=== PATIENT | female | born 1985 | race Caucasian/White ===

== ENCOUNTER 2022-02-17 16:33 | Outpatient (CLI) | payer SELFPAY ==
[2022-02-17 17:07] VITALS: BP 115/72
--- NOTE | 2022-02-17 18:40 | Ultrasound Report ---
ULTRASOUND OBSTETRIC LIMITED ULTRASOUND BIOPHYSICAL PROFILE INDICATION / CLINICAL INFORMATION: bpp. COMPARISON: None available. FINDINGS: BREATHING MOVEMENT = 2 GROSS BODY MOVEMENT = 2 TONE = 2 QUALITATIVE AMNIOTIC FLUID VOLUME = 2 TOTAL BIOPHYSICAL SCORE = 8/8 AMNIOTIC FLUID INDEX (cm) = 17.4 PRESENTATION: Cephalic. HEART RATE (beats per minute): 147 ADDITIONAL FINDINGS: None. IMPRESSION: 1. Biophysical Score = 8/8 Signer Name: Meek Chauhan MD Signed: 02/17/2022 6:36 PM Workstation Name: [id number]
== END 2022-02-17 19:25 | disposition home or self-care (01) ==
LOC: TRG 16:33 → APU 16:35 → TRG 20:44
PROVIDERS: ATTEND Obstetrics & Gynecology
DX: O09.893 Supervision of other high risk pregnancies, third trimester (principal); Z3A.40 40 weeks gestation of pregnancy
CPT/HCPCS: 76815; 76819

== ENCOUNTER 2022-02-20 15:52 | Inpatient (IN) | payer SELFPAY ==
[2022-02-20] MEDS ORDERED: LACTATED RINGERS 1,000 ML ONE (16:54)
--- NOTE | 2022-02-20 17:49 | History and Physical Report ---
History of Present Illness Date of examination: 02/20/22 Date of admission: 02/20/2022 Chief complaint: Presents for scheduled postdates induction History of present illness: Late Entry to Care at [facility]; course complicated by palpations. Past History Past Medical History: no pertinent history Past Surgical History: no surgical history Family/Genetic History: hypertension Social history: no significant social history - Obstetrical History Expected Date of Delivery: 02/17/22 Actual Gestation: 40 Week(s) 3 Day(s) : 1 Medications and Allergies Allergies Allergy/AdvReac Type Severity Reaction Status Date / Time No Known Allergies Allergy Unverified 02/17/22 17:12 Review of Systems All systems: negative - Vital Signs Vital signs: Vital Signs Pulse Pulse Ox 45 L 88 02/20/22 16:26 02/20/22 16:26 Temp Pulse Resp BP Pulse Ox 98.7 F 70 16 135/70 100 02/20/22 16:37 02/20/22 17:41 02/20/22 16:37 02/20/22 16:37 02/20/22 17:41 - Physical Exam Lungs: Positive: Clear to auscultation, Normal air movement Abdomen: Positive: soft, normal bowel sounds Genitourinary (Female): Positive: normal external genitalia, normal perenium Vagina: Positive: normal moisture Uterus: Positive: enlarged - Obstetrical FHR: category 1 Uterine Contraction Monitor Mode: External Cervical Dilatation: 3 Cervical Effacement Percentage: 30 station: -3 Uterine Contraction Pattern: Regular Uterine Tone Measurement Phase: Resting Uterine Contraction Intensity: Moderate Results All other labs normal. Assessment and Plan A: IUP @ 40 3/7 Weeks Category I Tracing AMA GBS Positive P: Admit to L&D per Routine Orders GBS Prophylaxis Pitocin Augmentation
[2022-02-20] MEDS ORDERED: TERBUTALINE 1 MG/1 ML INJ SUB-Q PRN (17:52)
[2022-02-20] MEDS ORDERED: NALOXONE 0.4 MG/1 ML INJ IV PRN (17:52)
[2022-02-20] MEDS ORDERED: ONDANSETRON 4 MG/2 ML INJ IV PRN (17:52)
[2022-02-20] MEDS ORDERED: miSOPROStol 200 MCG TAB PR PRN (17:52)
[2022-02-20] MEDS ORDERED: CARBOPROST TROMETHAMINE 250 MCG/1 ML INJ IM PRN (17:52)
[2022-02-20] MEDS ORDERED: OXYTOCIN 10 UNIT/1 ML INJ IM PRN (17:52)
[2022-02-20] MEDS ORDERED: LOPERAMIDE 2 MG CAP PO PRN (17:52)
[2022-02-20] MEDS ORDERED: ePHEDrine SULFATE 50 MG/1 ML INJ IV PRN (17:52)
[2022-02-20] MEDS ORDERED: METHYLERGONOVINE MALEATE 0.2 MG/ML VIAL IM PRN (17:52)
[2022-02-20] MEDS ORDERED: LIDOCAINE (2%) 20 MG/1 ML VIAL 20 ML MDV INFILTRATI ONE (17:52)
[2022-02-20] MEDS ORDERED: BUTORPHANOL 2 MG/1 ML INJ IV PRN (17:52)
[2022-02-20] MEDS ORDERED: MINERAL OIL 30 ML ORAL LIQD PO PRN (17:52)
[2022-02-20] MEDS ORDERED: OXYTOCIN DRIP 30 UNITS/500 ML BAG IV SCH ×2 (18:00)
[2022-02-20] MEDS ORDERED: AMPICILLIN/NS 2 GM/100 ML 2 GM/100 ML BAG IV ONE (19:00)
[2022-02-20] MEDS: LACTATED RINGERS 1,000 ML IV SCH (19:47)
[2022-02-20 20:23] LABS: Hematocrit 38.2 % (30.3-42.9); Hemoglobin 12.1 gm/dl (10.1-14.3); Mean Corpuscular HGB Conc 32 % (30-34); Mean Corpuscular Volume 92 fl (79-97); Red Blood Count 4.18 M/mm3 (3.65-5.03)
[2022-02-20 20:31] LABS: Platelet Count 150 K/mm3 (140-440)
--- NOTE | 2022-02-20 23:53 | Ultrasound Report ---
US OB follow up INDICATION / CLINICAL INFORMATION: Post-due date COMPARISON: biophysical profile Limited OB ultrasound 02/17/2022 TECHNIQUE: Using a transcutaneous probe, multiple grayscale, color Doppler, and spectral Doppler imag es of the uterus and fetus were captured and stored. FINDINGS: Single cephalic fetus heart rate 146 bpm. Amniotic fluid index upper limits of normal with NIKI of 21 cm. Grade 2 posterior fundal placenta. Measurements as documented on study result in an estimated composite gestational age of 39 weeks 4 da ys, EDC 02/23/2022. Clinical estimate of gestational age is 40 weeks 3 days. Estimated weight is 3822 g; 61% growth percentile. IMPRESSION: 1. Single living fetus as detailed. Signer Name: Britton Pak II, MD Signed: 02/20/2022 11:49 PM Workstation Name: [id number]
[2022-02-21] MEDS ORDERED: SODIUM CHLORIDE 0.9% IRR 1,500 ML BOTTLE IR ONE (00:19)
[2022-02-21] MEDS ORDERED: WATER FOR IRRIG STERILE 1,500 ML BOTTLE IR ONE (00:19)
[2022-02-21] MEDS: miSOPROStol 25 MCG TAB PO SCH ×2 (00:26→04:10)
[2022-02-21] MEDS: AMPICILLIN/NS 1 GM/50 ML 1 GM/50 ML BAG IV SCH ×3 (00:28→08:28)
[2022-02-21] MEDS ORDERED: BUTORPHANOL 2 MG/1 ML INJ IV PRN (01:15)
[2022-02-21] MEDS ORDERED: ACETAMINOPHEN 500 MG TAB PO PRN (01:15)
[2022-02-21] MEDS ORDERED: fentaNYL 100 MCG/2 ML INJ IV PRN (01:15)
--- NOTE | 2022-02-21 11:36 | Event Note ---
Date: 02/21/22 Pt evaluated. Pt has received carr balloon and cytotec for induction. moderate amount of blood noted, u/s with fundal placenta therefore pelvic done and cervix 7/80/-1 with bulging bag to +1 station, AROM done gently and head engaged with polyhydramnios noted and same with light meconium stain and small gaston of blood, will augment labor with pitocin in 2hrs if cervix unchanged. Nurse notified. Will also give PCN 3mu every 4hrs being GBS positive and has received 2doses of Ampicillin already per nurse report. pt states she had care in [place] prior to 27wks when [facility]. EFW estimated to be 3800g. Hopeful for vaginal delivery
[2022-02-21] MEDS: PENICILLIN G POTASSIUM 3 MIL.UNITS in SODIUM CHLORIDE 0.9% 50 ML IV SCH ×2 (12:56→16:39)
[2022-02-21] MEDS ORDERED: NalbUPHINE 10 MG/1 ML INJ IV PRN (14:00)
[2022-02-21] MEDS ORDERED: OXYTOCIN DRIP 30 UNITS/500 ML BAG IV SCH (15:00)
--- NOTE | 2022-02-21 17:05 | Event Note ---
Date: 02/21/22 pt evaluated and pelvic unchanged at 7/100/-1; IUPC and FSE placed to measure adequacy of contractions and close monitoring. FHR category I and pitocin 2mu/min. Pt educated about epidural because she is tearful with contractions now after received IV nubain pain med. Hopeful for vaginal delivery. Pt declines epidural at this time.
[2022-02-21] MEDS ORDERED: ePHEDrine SULFATE 50 MG/1 ML INJ ONE (17:11)
[2022-02-21] MEDS ORDERED: ePHEDrine SULFATE 50 MG/1 ML INJ IV PRN (17:26)
[2022-02-21] MEDS ORDERED: NALOXONE 0.4 MG/1 ML INJ IV PRN (17:26)
[2022-02-21] MEDS ORDERED: fentaNYL-BUPIV 2 MCG/ML-0.125% 200 MCG/100 ML BAG EPIDURAL SCH (18:00)
--- NOTE | 2022-02-21 18:12 | Anesthesia Consultation ---
Anesthesia Consult and Med Hx Date of service: 02/21/22 - Airway Anesthetic Teeth Evaluation: Poor ROM Head & Neck: Adequate Mental/Hyoid Distance: Adequate Mallampati Class: Class II Intubation Access Assessment: Probably Good - Pulmonary Exam CTA: Yes - Cardiac Exam Cardiac Exam: RRR - Pre-Operative Health Status ASA Pre-Surgery Classification: ASA2 Proposed Anesthetic Plan: Epidural - Pulmonary Hx Smoking: No Hx Asthma: No Hx Respiratory Symptoms: No COPD: No Hx Pneumonia: No - Cardiovascular System Hx Hypertension: No - Central Nervous System Hx Seizures: No Hx Psychiatric Problems: No - Endocrine Hx Renal Disease: No Hx End Stage Renal Disease: No Hx Insulin Dependent Diabetes: No Hx Non-Insulin Dependent Diabetes: No Hx Hypothyroidism: No Hx Hyperthyroidism: No - Hematic Hx Anemia: No Hx Sickle Cell Disease: No - Other Systems Hx Alcohol Use: No Hx Substance Use: No Hx Obesity: Yes
--- NOTE | 2022-02-21 18:13 | Progress Note ---
Labor Epidural - Labor Epidural Start Time: 17:42 Stop Time: 17:58 Performed by:: ALBERTO KAUFMAN Procedure: Patient is requesting epidural for labor pain. H&P and labs reviewed. Procedure explained, questions answered, consent obtained. Patient placed in sitting position with monitors applied. Timeout performed immediately before start of procedure. Prep/drape in usual sterile fashion. Skin localized 3 mL 1% lidocaine at L[3]-L[4] interspace. 17-gauge Touhy epidural needle advanced to GURVINDER with saline at [8] cm. No blood/CSF noted via epidural needle. Epidural catheter advanced to [12] cm. Negative aspiration for blood and CSF via catheter, negative response to test dose 3 ml 1.5% lidocaine w/ Epi. Sterile dressing applied followed by tape reinforcement. Patient tolerated procedure well. No immediate complications noted.
[2022-02-21] MEDS ORDERED: SODIUM CHLORIDE 0.9% 1000 ML 1,000 ML VG SCH (19:45)
[2022-02-21] MEDS: LACTATED RINGERS 1,000 ML IV SCH (19:45)
--- NOTE | 2022-02-21 19:47 | Event Note ---
Date: 02/21/22 S: Feels good O: VE /-1, variable decelerations noted, amnioinfusion started. Pit at 2 mu A: 40.4 week Induction of labor P: Amnioinfusion Continue to monitor
[2022-02-21] MEDS ORDERED: FAMOTIDINE 20 MG/2 ML INJ IV ONE (21:40)
[2022-02-21] MEDS ORDERED: AZITHROMYCIN/NS 500 MG/250 ML 500 MG/250 ML BAG IV ONE (21:40)
[2022-02-21] MEDS ORDERED: BICITRA ORAL LIQD 30ML PO ONE (21:40)
[2022-02-21] MEDS ORDERED: METOCLOPRAMIDE 10 MG/2 ML INJ IV ONE (21:40)
--- NOTE | 2022-02-21 21:46 | Event Note ---
Date: 02/21/22 S: Feeling ok O:CAT 2 tracing, variability decreasing, on exam, pitocin remains off A: NRFT and failure to descend P: Dr. Benavides notified of pt status and need for .
[2022-02-21] MEDS ORDERED: ceFAZolin/Water 2 GM/20 ML 2 GM/20 ML SYRINGE IV NR (22:00)
[2022-02-21] MEDS ORDERED: miSOPROStol 200 MCG TAB ONE (22:43)
[2022-02-21] MEDS ORDERED: LIDOCAINE 2%/EPINEPHRINE 1:200,000 VIAL (20 ML) INFILTRATI ONE (23:49)
[2022-02-22] MEDS ORDERED: SODIUM CHLORIDE 0.9% 500 ML 500 ML IV ONE ×2 (00:15→04:03)
[2022-02-22 00:27] LABS: Basophils % (Auto) 0.3 % (0.0-1.8); Hematocrit 29.2 % (30.3-42.9); Hemoglobin 9.2 gm/dl (10.1-14.3); Lymphocytes # (Auto) 0.9 K/mm3 (1.2-5.4); Lymphocytes % (Auto) 7.6 % (13.4-35.0); Mean Corpuscular HGB Conc 32 % (30-34); Mean Corpuscular Volume 91 fl (79-97); Monocytes # (Auto) 0.6 K/mm3 (0.0-0.8); Monocytes % (Auto) 5.2 % (0.0-7.3); Platelet Count 117 K/mm3 (140-440)
[2022-02-22] MEDS ORDERED: LACTATED RINGERS 1,000 ML ONE (00:29)
[2022-02-22] MEDS ORDERED: ONDANSETRON 4 MG/2 ML INJ ONE (00:29)
[2022-02-22] MEDS ORDERED: ePHEDrine SULFATE 50 MG/1 ML INJ ONE (00:41)
[2022-02-22 00:45] LABS: Alanine Aminotransferase 10 units/L (7-56); Albumin 2.7 g/dL (3.9-5); BUN/Creatinine Ratio 9; Blood Urea Nitrogen 7 mg/dL (7-17); Calcium 8.1 mg/dL (8.4-10.2); Hemolysis Index 34
[2022-02-22] MEDS ORDERED: SODIUM CHLORIDE 0.9% 500 ML 500 ML ONE ×2 (00:50→08:16)
--- NOTE | 2022-02-22 01:45 | Anesthesia Day of Surgery ---
Anesthesia Day of Surgery - Day of Surgery Patient Examined: Yes Patient H&P Reviewed: Yes Patient is NPO: Yes
--- NOTE | 2022-02-22 01:54 | Procedure Note ---
OB Delivery Note - Delivery Date of Delivery: 02/21/22 Surgeon: MARGO BAUTISTA Estimated blood loss: other (9cc by QBL) - Section Preop diagnosis: arrest of descent, nonreassuring FHR tracing, other (meconium stained fluid and moderate dark color hemoperitoneum) Postop diagnosis: same (and severe endometriosis extensive to posterior uterine wall and posterior culdesac; possible pelvic inflammaton with adhesions more on right posterior uterine wall) section procedure: primary low transverse Disposition: floor Complications: intra-op hemorrhage, uterine atony, other (4cm hole in right mesosalpinx that extended posteriorly towards endometriosis implants/adenomyosis ) Narrative: Date: 02/22/22 Surgeon: Margo Bautista MD Consult: Dr. Анна Gary Preop Dx: IUP at 40.4wks, arrest of descent with complete dilation in the OR, failed vaginal attempt with delivery with FHR in the 60's; Meconium stained fluid Postop Dx: same and severe endometriosis and 4cm hole in right mesosalpinx Procedure : Primary low transverse section and right uterine artery ligation and hemostasis of right mesosalpinx with cautery Anesthesia: Epidural Intake: 2000cc crystalloids and 1units PRBC and 2nd unit to be started in Recovery Room Output: 200cc clear at the end of the procedure [id number] by QBL After the risks, benefits and alternatives of procedure discussed, patient signed consents and was taken to the operating room. Pt was placed in dorsal lithotomy position now complete at zero station and instructed to push, and pt could not do same effectively. FHR by doppler down to 60's hand held by nurse without tocometer stating same not available. I aborted this vaginal attempt and proceeded with section. Pt was given epidural anesthesia. After same was adequate, patient was prepped and draped in the usual sterile fashion. Kendrick catheter in place and draining blood tinged urine. Pt was given prophylactic antibiotic with ancef and zithromax per protocol and time out was done Pfannenstiel skin incision was made and taken sharply to the fascia and the incision extended using electrocautery. Superior edge of the fascia was grasped with malachi clamps and the rectus muscle using blunt dissection and also using electrocautery. Lower portion of the fascia also with electrocautery. Rectus muscle in the midline and Peritoneal cavity entered bluntly and extended with good visualization of the bladder. Moderate amount of dark brown hemoperitoneum seen. Gavin retractor placed without difficulty. The bladder flap was created sharply using metzenbaum scissors. Circulating nurse asked to push up head wedged deep in the pelvis and then Lower uterine segment was entered transversely and amniotic sac entered using allys clamps with scant if any amniotic fluid. Uterine incision extended using bandage scissors. Infant delivered in persistent O-P presentation and headd dislodged pushed upward by nurse, bulb suctioned, cord clamped and baby handed to waiting pediatricians. Placenta then delivered completely and uterine cavity cleared of all clots and debri. The uterus was not exteriorized and closed in 2 layers using 0-monocryl suture in a running locked fashion and then an additional layer of imbrication suture and 2 figure of 8 sutures. Attention turned to right side of mesosalpinx near bladder peritoneum where continue bleeding noted. Uterus was exteriorized at this point for extensive examination. Electrocautery used to control minimal ooze in a 4cm hole of mesosalpinx. The tissue was too thin to reapproximate with engorged vessels laterally to right within mesosalpinx. Uterine atony persistent, therefore uterine artery ligation done to right side using 0-vicryl suture with good effect. Posteriorly the uterus with extensive endometriotic implant versus inflammation with prominent vasulature. Figure of [address] posteriorly at the mid lower portion to control persistent bleed and same was good. Bladder integrity good and urine now clear stated the anesthesioligist. I requested consult from my colleague Dr. Gary because I had never seen a uterus like this before. By the time she was free, hemostasis was great. Irrigation done with copious amount of saline and surgicel placed posteriorly to extensive friable uterus and areas where electrocautery applied to control oozing. The uterus was returned to the abdomen, now firm with one dose of methergine given by anesthesiologist and IV pitocin. The gutters were cleared of clots and debri and anterior peritoneum closed using 3-0 vicryl suture continuously and rectus muscle reapproximated using 0-vicryl suture continuously. Rectus fascia closed with 0-vicryl] suture and subcutaneous tissue copiously irrigated with normal saline and re-approximated using [3-0 vicryl] suture. Excellent hemostasis remains. The skin was closed with 4-0 monocryl suture subcutaneously and steristrips placed with pressure dressing. Sponge, lap, instrument and needle counts x2 were normal. Patient tolerated the procedure well and was taken to recovery room stable. Findings: Viable female , APGARS 8/9 and weight 3680g. hemoperitoneum moderate amount; Friable uterus, boggy and posterior uterine wall with extensive endometriosis/adhesions that bleeds easily all the way to the posterior culdesac, normal tubes and ovaries bilaterally; Omentum yellow in color. Complication: 1. PPH, Uterine atony treated with IM methergine and cytotec 800mcg per rectum and IV pitocin. 2. Incidental hole in right mesosalpinx extending below round ligament toward bladder serosa (however no injury to bladder apparent) and deep in the pelvis posteriorly, no hematoma seen and same measured approx 4cm in length. - A at 1 minute: 8 at 5 minutes: 9 Infant Gender: Female (wt 3080g)
[2022-02-22] MEDS ORDERED: NALOXONE 0.4 MG/1 ML INJ IV PRN (02:25)
[2022-02-22] MEDS ORDERED: IBUPROFEN 800 MG TAB PO PRN (02:25)
[2022-02-22] MEDS ORDERED: LANOLIN/ZINC/DIMETHICONE (LANSINOH) 7 GM TP PRN (02:25)
[2022-02-22] MEDS ORDERED: WITCH HAZEL/ GLYCERIN PAD TP PRN (02:25)
[2022-02-22] MEDS: GENTAMICIN/NS 120MG/100ML 120 MG/100 ML BAG IV SCH ×3 (02:43→17:58)
[2022-02-22] MEDS ORDERED: OXYTOCIN DRIP 30 UNITS/500 ML BAG IV SCH (03:00)
--- NOTE | 2022-02-22 04:02 | Event Note ---
Date: 02/22/22 In recovery room, pt had elevated pressures, mild tacchycardia with good urine output, however due to caution, I consulted Dr. Astorga for pt to be in the ICU, with early signs of sepsis, Fibrinogen ordered and results not yet received.
[2022-02-22] MEDS: MORPHINE 4 MG/1 ML INJ IV PRN ×3 (04:10→09:54)
--- NOTE | 2022-02-22 04:18 | Event Note ---
Date: 02/22/22 While taking the patient to ICU alongside the nurses and Anesthesia team, the results of Fibrinogen were noted to be 75; I ordered 2units FFP and consulted Dr. Astorga, tissue technologist giving him the report of patient's condition. Pt has received unit PRBC and receiving her 2nd unit PRBC. Pt informed of plan of care and also her . Urine output remains well. All methergine stopped with pt BP elevated since than time. Low threshold for early preeclampsia after pt reported she had headache during labor that resolved after she received the epidural. LFTs wnl at this time. Pt to continue current broad spectrum antibiotic until evaluated by ICU team, and I will follow alongside with their mgt of sepsis. All questions encouraged and answered.
[2022-02-22] MEDS ORDERED: ACETAMINOPHEN 325 MG TAB PO ONE (04:21)
[2022-02-22] MEDS: VANCOMYCIN/NS 1 GM/250 ML 1 GM/250 ML BAG IV SCH ×2 (04:25→15:12)
[2022-02-22 05:00] LABS: INR 0.98 (0.87-1.13)
[2022-02-22 05:01] LABS: Partial Thromboplastin Time 30.3 Sec. (24.2-36.6)
[2022-02-22] MEDS ORDERED: ACETAMINOPHEN 500 MG TAB PO PRN (05:56)
[2022-02-22 08:04] LABS: Color,Urine Straw (Yellow)
--- NOTE | 2022-02-22 09:48 | Consultation ---
History of Present Illness - Reason for Consult Consult date: 02/22/22 Post Hemorrhage s/p Requesting physician: BLADIMIR BAUTISTA - History of Present Illness 36 y/o female who Had emergent earlier this morning admitted to the ICU post op from about 2100cc's blood loss. Patient is awake and alert and oriented. In pain and has questions about the I am not equipped to answer. Pad changed this am with scant blood. Patient had 2 units of PRBC's transfused last night. Repeat H/H still pending. Normal BP and mild tachycardia. Patient was also given 2 units of PRBC's by OB. INR within normal limits, fibrinogen was low at 75 shortly after surgery. Currently on room air and stable. Remainder of the review is negative. She was placed on abx therapy given her fever and concern for sepsis. Blood cultures are pending from this morning. Past History Past Medical History: No medical history Past Surgical History: No surgical history Social history: no significant social history Medications and Allergies Allergies Allergy/AdvReac Type Severity Reaction Status Date / Time No Known Allergies Allergy Unverified 02/17/22 17:12 Home Medications Medication Instructions Recorded Confirmed Last Taken Type Ferrous Fumarate (Nf) 1 tab PO DAILY 02/22/22 02/22/22 02/13/22 History Active Meds: Active Medications Acetaminophen (Acetaminophen 500 Mg Tab) 1,000 mg PO Q6H PRN PRN Reason: Fever >100.3 Carboprost Tromethamine (Carboprost Tromethamine 250 Mcg/1 Ml Inj) 250 mcg IM ONCE PRN PRN Reason: Uterine Bleeding Ferrous Sulfate (Ferrous Sulfate 325 Mg Tab) 325 mg PO QDAY SARAH Lactated Ringer's (Lactated Ringers) 1,000 mls @ 125 mls/hr IV DIRECT SARAH Last Admin: 02/21/22 19:45 Dose: 125 mls/hr Vancomycin HCl (Vancomycin/Ns 1 Gm/250 Ml) 1 gm in 250 mls @ 166.667 mls/hr IV Q12H SARAH; Protocol Stop: 02/24/22 02:59 Last Admin: 02/22/22 04:25 Dose: 166.667 mls/hr Gentamicin Sulfate/Sodium Chloride (Gentamicin/Ns 120mg/100ml) 120 mg in 100 mls @ 200 mls/hr IV Q8H SARAH; Protocol Stop: 02/24/22 02:29 Last Admin: 02/22/22 02:43 Dose: 200 mls/hr Oxytocin/Sodium Chloride (Pitocin/Ns 30 Unit/500ml) 30 units in 500 mls @ 40 mls/hr IV TITR SARAH; Protocol Ibuprofen (Ibuprofen 800 Mg Tab) 800 mg PO Q6H PRN PRN Reason: Pain, Moderate (4-6) Morphine Sulfate (Morphine 4 Mg/1 Ml Inj) 4 mg IV Q3H PRN PRN Reason: Pain , Severe (7-10) Last Admin: 02/22/22 06:21 Dose: 4 mg Multi-Ingredient Ointment (Lanolin/Zinc/Dimethicone (Lansinoh) 7 Gm) 1 applic TP PRN PRN PRN Reason: dryness/cracking Naloxone HCl (Naloxone 0.4 Mg/1 Ml Inj) 0.2 mg IV Q5MIN PRN PRN Reason: Respiratory sedation Naloxone HCl (Naloxone 0.4 Mg/1 Ml Inj) 0.1 mg IV Q2MIN PRN PRN Reason: Res Rate </= 8 or 02 SAT < 92% Oxycodone/Acetaminophen (Oxycodone /Acetaminophen 5-325mg Tab) 2 tab PO Q4H PRN PRN Reason: Pain, Moderate (4-6) Sodium Chloride (Sodium Chloride 0.9% 10 Ml Flush Syringe) 10 ml IV PRN PRN PRN Reason: LINE FLUSH Last Admin: 02/22/22 06:23 Dose: 10 ml Witch Rama/Glycerin (Witch Rama/ Glycerin Pad) 1 each TP PRN PRN PRN Reason: Hemorrhoids/cleansing/soothing Review of Systems All systems: negative Constitutional: other (pain around incision, abdominal area) Exam - Constitutional Vitals: Temp Pulse Resp BP Pulse Ox 99.1 F 87 24 148/81 98 02/22/22 09:30 02/22/22 09:30 02/22/22 09:30 02/22/22 09:30 02/22/22 09:30 General appearance: Present: no acute distress, well-nourished, obese - EENT Eyes: Present: PERRL, EOM intact ENT: hearing intact, clear oral mucosa - Neck Neck: Present: supple, normal ROM - Respiratory Respiratory effort: normal Respiratory: bilateral: CTA - Cardiovascular Rhythm: regular Heart Sounds: Present: S1 & S2 - Extremities Extremities: no ischemia, pulses intact, pulses symmetrical Results - Labs CBC & Chem 7: 02/22/22 00:14 02/22/22 00:14 Labs: Abnormal lab results 02/20/22 02/22/22 02/22/22 Range/Units 17:00 00:14 00:14 WBC 11.5 H (4.5-11.0) K/mm3 RBC 3.20 L (3.65-5.03) M/mm3 Hgb 9.2 L (10.1-14.3) gm/dl Hct 29.2 L D (30.3-42.9) % Plt Count 117 L (140-440) K/mm3 Lymph % (Auto) 7.6 L (13.4-35.0) % Lymph # (Auto) 0.9 L (1.2-5.4) K/mm3 Seg Neutrophils % 86.9 H (40.0-70.0) % Seg Neutrophils # 10.0 H (1.8-7.7) K/mm3 Fibrinogen (211-480) mg/dl Chloride 107.4 H (98-107) mmol/L Carbon Dioxide 18 L (22-30) mmol/L Glucose 122 H (65-100) mg/dL Lactic Acid (0.7-2.0) mmol/L Calcium 8.1 L (8.4-10.2) mg/dL Alkaline Phosphatase 279 H (35-129) units/L Total Protein 4.6 L (6.3-8.2) g/dL Albumin 2.7 L (3.9-5) g/dL Crossmatch See Detail 02/22/22 02/22/22 Range/Units 04:10 Unknown WBC (4.5-11.0) K/mm3 RBC (3.65-5.03) M/mm3 Hgb (10.1-14.3) gm/dl Hct (30.3-42.9) % Plt Count (140-440) K/mm3 Lymph % (Auto) (13.4-35.0) % Lymph # (Auto) (1.2-5.4) K/mm3 Seg Neutrophils % (40.0-70.0) % Seg Neutrophils # (1.8-7.7) K/mm3 Fibrinogen 75 L* (211-480) mg/dl Chloride (98-107) mmol/L Carbon Dioxide (22-30) mmol/L Glucose (65-100) mg/dL Lactic Acid 2.60 H* (0.7-2.0) mmol/L Calcium (8.4-10.2) mg/dL Alkaline Phosphatase (35-129) units/L Total Protein (6.3-8.2) g/dL Albumin (3.9-5) g/dL Crossmatch Assessment and Plan 36 y/o female s/p emergent with hemorrhage admitted to ICU for further monitoring. 1. Stat repeat of CBC and Fibrinogen levels. no current evidence of bleeding. has finished 2 of FFP and 2 units of PRBC's 2. No objection to abx choice as I assume they chose meds based on common OB related bugs. No skin infection, no clinical evidence of pneumonia, no reason current for me to change. What I would suggest is daily chemistry to monitor renal function given use of aminoglycosides and vanc. Will need PK consult for levels and dosing adjustments 3. Pain control 4. OB to determine when patient can eat. 5. Continue ICU monitoring, guarded prognosis.
[2022-02-22] MEDS: FERROUS SULFATE 325 MG TAB PO SCH (09:55)
[2022-02-22 10:52] LABS: Basophils % (Auto) 0.2 % (0.0-1.8); Eosinophils % (Auto) 0.1 % (0.0-4.3); Hematocrit 30.9 % (30.3-42.9); Hemoglobin 10.5 gm/dl (10.1-14.3); Lymphocytes # (Auto) 1.4 K/mm3 (1.2-5.4); Lymphocytes % (Auto) 11.2 % (13.4-35.0); Mean Corpuscular HGB Conc 34 % (30-34); Mean Corpuscular Volume 89 fl (79-97); Monocytes # (Auto) 0.8 K/mm3 (0.0-0.8); Monocytes % (Auto) 5.9 % (0.0-7.3); Platelet Count 103 K/mm3 (140-440); Red Blood Count 3.49 M/mm3 (3.65-5.03)
[2022-02-22] MEDS: LACTATED RINGERS 1,000 ML IV SCH ×2 (12:49→21:50)
[2022-02-22] MEDS: oxyCODONE /ACETAMINOPHEN 5-325MG TAB PO PRN (13:02)
[2022-02-23] MEDS: oxyCODONE /ACETAMINOPHEN 5-325MG TAB PO PRN ×2 (00:06→10:45)
[2022-02-23] MEDS: GENTAMICIN/NS 120MG/100ML 120 MG/100 ML BAG IV SCH ×3 (03:12→18:11)
[2022-02-23] MEDS: VANCOMYCIN/NS 1 GM/250 ML 1 GM/250 ML BAG IV SCH ×2 (03:17→21:44)
--- NOTE | 2022-02-23 06:10 | Post Anesthesia Evaluation ---
- Post Anesthesia Evaluation Patient Participated: Yes Airway Patent: Yes Stable Respiratory Function: Yes Nausea/Vomiting: No Temp > 96.8F: Yes Pain Manageable: Yes Adequeate Hydration: Yes Anesthesia Complications: No Block Receding Appropriately: Yes Patient on Ventilator: No
[2022-02-23] MEDS: LACTATED RINGERS 1,000 ML IV SCH (06:12)
[2022-02-23] MEDS: SIMETHICONE 80 MG CHEW TAB PO PRN (09:58)
[2022-02-23] MEDS: FERROUS SULFATE 325 MG TAB PO SCH (09:58)
[2022-02-23 10:41] LABS: Hematocrit 31.3 % (30.3-42.9); Hemoglobin 10.4 gm/dl (10.1-14.3); Mean Corpuscular HGB Conc 33 % (30-34); Mean Corpuscular Volume 90 fl (79-97); Platelet Count 128 K/mm3 (140-440); Red Blood Count 3.49 M/mm3 (3.65-5.03); Red Cell Distribution Width 14.8 % (13.2-15.2)
[2022-02-23 11:02] LABS: BUN/Creatinine Ratio 10; Blood Urea Nitrogen 8 mg/dL (7-17); Calcium 8.6 mg/dL (8.4-10.2); Hemolysis Index 0
--- NOTE | 2022-02-23 11:30 | Progress Note ---
Assessment and Plan 36 y/o female s/p emergent with hemorrhage admitted to ICU for further monitoring. 02/23/22: From a critical care standpoint, stable to go back to mother baby. Abx therapy per OB. Will sign off. 1. Stat repeat of CBC and Fibrinogen levels. no current evidence of bleeding. has finished 2 of FFP and 2 units of PRBC's 2. No objection to abx choice as I assume they chose meds based on common OB related bugs. No skin infection, no clinical evidence of pneumonia, no reason current for me to change. What I would suggest is daily chemistry to monitor renal function given use of aminoglycosides and vanc. Will need PK consult for levels and dosing adjustments 3. Pain control 4. OB to determine when patient can eat. 5. Continue ICU monitoring, guarded prognosis. Subjective Date of service: 02/23/22 Interval history: No acute events. Better. No bleeding. Objective - Constitutional Vitals: Vital Signs - 12hr 02/22/22 02/23/22 02/23/22 23:30 00:00 00:01 Temperature 98.5 F Pulse Rate 73 63 76 Pulse Rate [ From Monitor] Respiratory 22 20 Rate Blood Pressure 148/73 139/71 O2 Sat by Pulse 96 100 Oximetry 02/23/22 02/23/22 02/23/22 00:06 00:30 01:00 Temperature Pulse Rate 62 64 Pulse Rate [ From Monitor] Respiratory 26 H 14 17 Rate Blood Pressure 125/54 115/61 O2 Sat by Pulse 97 98 Oximetry 02/23/22 02/23/22 02/23/22 01:30 02:00 02:30 Temperature Pulse Rate 62 76 64 Pulse Rate [ From Monitor] Respiratory 15 19 16 Rate Blood Pressure 122/55 112/56 118/67 O2 Sat by Pulse 99 96 99 Oximetry 02/23/22 02/23/22 02/23/22 03:00 03:30 04:00 Temperature 98.6 F Pulse Rate 62 57 L 54 L Pulse Rate [ From Monitor] Respiratory 13 17 22 Rate Blood Pressure 109/53 122/61 115/61 O2 Sat by Pulse 97 97 100 Oximetry 02/23/22 02/23/22 02/23/22 04:30 05:00 05:30 Temperature Pulse Rate 74 59 L 58 L Pulse Rate [ From Monitor] Respiratory 14 18 19 Rate Blood Pressure 125/66 128/64 126/62 O2 Sat by Pulse 99 98 98 Oximetry 02/23/22 02/23/22 02/23/22 06:00 06:30 07:00 Temperature Pulse Rate 66 72 73 Pulse Rate [ From Monitor] Respiratory 10 L 22 16 Rate Blood Pressure 133/70 133/70 143/84 O2 Sat by Pulse 100 96 98 Oximetry 02/23/22 02/23/22 02/23/22 07:30 08:00 08:30 Temperature 98.2 F Pulse Rate 74 59 L 78 Pulse Rate [ 67 From Monitor] Respiratory 13 11 L 15 Rate Blood Pressure 143/84 142/61 142/61 O2 Sat by Pulse 97 99 98 Oximetry 02/23/22 02/23/22 02/23/22 09:00 09:30 10:00 Temperature Pulse Rate 56 L 81 71 Pulse Rate [ From Monitor] Respiratory 22 11 L 15 Rate Blood Pressure 148/69 148/69 148/69 O2 Sat by Pulse 98 97 Oximetry 02/23/22 02/23/22 02/23/22 10:30 10:45 11:00 Temperature Pulse Rate 69 64 Pulse Rate [ From Monitor] Respiratory 26 H 18 22 Rate Blood Pressure 150/79 143/67 O2 Sat by Pulse Oximetry - Labs CBC & Chem 7: 02/23/22 09:53 02/23/22 09:53 Labs: Abnormal lab results 02/23/22 02/23/22 Range/Units 09:53 09:53 WBC 16.6 H (4.5-11.0) K/mm3 RBC 3.49 L (3.65-5.03) M/mm3 Plt Count 128 L (140-440) K/mm3 Sodium 136 L (137-145) mmol/L Carbon Dioxide 21 L (22-30) mmol/L Medications & Allergies - Medications Allergies/Adverse Reactions: Allergies No Known Allergies Allergy (Unverified 02/17/22 17:12) Home Medications: Home Medications Medication Instructions Recorded Confirmed Last Taken Type Ferrous Fumarate (Nf) 1 tab PO DAILY 02/22/22 02/22/22 02/13/22 History Active Medications: Generic Name Dose Route Start Last Admin Trade Name Freq PRN Reason Stop Dose Admin Acetaminophen 1,000 mg 02/22/22 05:56 Acetaminophen 500 Mg Tab PO Q6H PRN Fever >100.3 Carboprost Tromethamine 250 mcg 02/20/22 17:52 Carboprost Tromethamine 250 Mcg/1 Ml Inj IM ONCE PRN Uterine Bleeding Ferrous Sulfate 325 mg 02/22/22 10:00 02/23/22 09:58 Ferrous Sulfate 325 Mg Tab PO 325 mg QDAY SARAH Administration Lactated Ringer's 1,000 mls @ 125 mls/hr 02/20/22 18:00 02/23/22 06:12 Lactated Ringers IV 125 mls/hr DIRECT SARAH Administration Vancomycin HCl 1 gm in 250 mls @ 166.667 mls/hr 02/22/22 03:00 02/23/22 03:17 Vancomycin/Ns 1 Gm/250 Ml IV 02/24/22 02:59 166.667 mls/hr Q12H SARAH Administration Protocol Gentamicin Sulfate/Sodium Chloride 120 mg in 100 mls @ 200 mls/hr 02/22/22 02:30 02/23/22 10:40 Gentamicin/Ns 120mg/100ml IV 02/24/22 02:29 200 mls/hr Q8H SARAH Administration Protocol Oxytocin/Sodium Chloride 30 units in 500 mls @ 40 mls/hr 02/22/22 03:00 Pitocin/Ns 30 Unit/500ml IV TITR SARAH Protocol Clindamycin HCl 900 mg in 50 mls @ 100 mls/hr 02/22/22 21:00 02/23/22 06:12 Cleocin 900 Mg/50 Ml IV 02/23/22 13:29 100 mls/hr Q8H SARAH Administration Protocol Ibuprofen 800 mg 02/22/22 02:25 Ibuprofen 800 Mg Tab PO Q6H PRN Pain, Moderate (4-6) Morphine Sulfate 4 mg 02/22/22 03:57 02/22/22 09:54 Morphine 4 Mg/1 Ml Inj IV 4 mg Q3H PRN Administration Pain , Severe (7-10) Multi-Ingredient Ointment 1 applic 02/22/22 02:25 Lanolin/Zinc/Dimethicone (Lansinoh) 7 Gm TP PRN PRN dryness/cracking Naloxone HCl 0.2 mg 02/21/22 17:26 Naloxone 0.4 Mg/1 Ml Inj IV Q5MIN PRN Respiratory sedation Naloxone HCl 0.1 mg 02/22/22 02:25 Naloxone 0.4 Mg/1 Ml Inj IV Q2MIN PRN Res Rate </= 8 or 02 SAT < 92% Oxycodone/Acetaminophen 2 tab 02/22/22 02:25 02/23/22 10:45 Oxycodone /Acetaminophen 5-325mg Tab PO 2 tab Q4H PRN Administration Pain, Moderate (4-6) Simethicone 80 mg 02/23/22 09:44 02/23/22 09:58 Simethicone 80 Mg Chew Tab PO 80 mg Q6H PRN Administration Gas pain Sodium Chloride 10 ml 02/22/22 03:00 02/22/22 06:23 Sodium Chloride 0.9% 10 Ml Flush Syringe IV 10 ml PRN PRN Administration LINE FLUSH Witch Rama/Glycerin 1 each 02/22/22 02:25 Witch Rama/ Glycerin Pad TP PRN PRN Hemorrhoids/cleansing/soothing
[2022-02-23] MEDS ORDERED: METOCLOPRAMIDE 10 MG/2 ML INJ IV PRN (15:01)
--- NOTE | 2022-02-24 00:11 | Progress Note ---
Assessment and Plan A: POD 2 primary csec, PPH, Sepsis, DIC Transferred from ICU to mother baby unit Antibiotic therapy IMS eval P: Continue PP care per unit protocol Continue antibiotic therapy per Dr. Benavides Daily chemistry to monitor renal function due to Vancomycin Subjective - Subjective Date of service: 02/23/22 (1899) Principal diagnosis: primary csection, Sepsis, PPH, DIC Patient reports: voiding normally, pain well controlled, flatus, bowel movement, ambulating normally [place]: doing well Objective - Vital Signs Latest vital signs: Vital Signs Temp Pulse Pulse Resp BP BP Pulse Ox 02/23/22 23:54 97.5 F L 02/23/22 22:15 98.8 F 88 135/75 02/23/22 21:47 88 136/76 02/23/22 18:57 97.6 F 61 18 135/63 100 02/23/22 11:55 99 H 150/79 02/23/22 11:45 02/23/22 11:00 64 22 143/67 02/23/22 10:45 18 02/23/22 10:30 69 26 H 150/79 02/23/22 10:00 71 15 148/69 02/23/22 09:30 81 11 L 148/69 97 02/23/22 09:00 56 L 22 148/69 98 02/23/22 08:30 78 15 142/61 98 02/23/22 08:00 98.2 F 59 L 67 11 L 142/61 99 02/23/22 07:30 74 13 143/84 97 02/23/22 07:00 73 16 143/84 98 02/23/22 06:30 72 22 133/70 96 02/23/22 06:00 66 10 L 133/70 100 02/23/22 05:30 58 L 19 126/62 98 02/23/22 05:00 59 L 18 128/64 98 02/23/22 04:30 74 14 125/66 99 02/23/22 04:00 98.6 F 54 L 22 115/61 100 02/23/22 03:30 57 L 17 122/61 97 02/23/22 03:00 62 13 109/53 97 02/23/22 02:30 64 16 118/67 99 02/23/22 02:00 76 19 112/56 96 02/23/22 01:30 62 15 122/55 99 08/28/22 01:00 64 17 115/61 98 02/23/22 00:30 62 14 125/54 97 Pulse Ox 02/23/22 23:54 02/23/22 22:15 02/23/22 21:47 02/23/22 18:57 02/23/22 11:55 02/23/22 11:45 98 02/23/22 11:00 02/23/22 10:45 02/23/22 10:30 02/23/22 10:00 02/23/22 09:30 02/23/22 09:00 02/23/22 08:30 02/23/22 08:00 02/23/22 07:30 02/23/22 07:00 02/23/22 06:30 02/23/22 06:00 02/23/22 05:30 02/23/22 05:00 02/23/22 04:30 02/23/22 04:00 02/23/22 03:30 02/23/22 03:00 02/23/22 02:30 02/23/22 02:00 02/23/22 01:30 02/23/22 01:00 02/23/22 00:30 Intake and Output 02/23/22 02/23/22 02/24/22 15:59 23:59 07:59 Intake Total 350 Output Total 1500 900 Balance -1150 -900 Intake: IV 100 GENTAMICIN/NS 120MG/100ML 100 120 mg In 100 ml @ 200 mls/hr IV Q8H [facility] Rx#: [id number] Oral 250 Output: Urine 1500 900 Indwelling Catheter 600 Void 900 900 Other: Total, Intake Amount 250 Total, Output Amount 500 900 Voiding Method Indwelling Catheter - Exam Breasts: Present: deferred Cardiovascular: Present: Regular rate Lungs: Present: Clear to auscultation Abdomen: Present: normal appearance Uterus: Present: firm, fundal height below umbilicus Extremities: Present: edema (+1 pitting) Deep Tendon Reflex Grade: Normal +2 Incision: Present: dry (old dark dry blood spot noted), dressed - Labs Labs: Abnormal lab results 02/23/22 02/23/22 Range/Units 09:53 09:53 WBC 16.6 H (4.5-11.0) K/mm3 RBC 3.49 L (3.65-5.03) M/mm3 Plt Count 128 L (140-440) K/mm3 Sodium 136 L (137-145) mmol/L Carbon Dioxide 21 L (22-30) mmol/L
[2022-02-24] MEDS: METOCLOPRAMIDE 10 MG/2 ML INJ IV SCH ×2 (01:36→10:20)
[2022-02-24] MEDS: GENTAMICIN/NS 120MG/100ML 120 MG/100 ML BAG IV SCH (01:38)
[2022-02-24] MEDS: LACTATED RINGERS 1,000 ML IV SCH (01:38)
--- NOTE | 2022-02-24 05:15 | Event Note ---
Date: 02/24/22 Pt evaluated briefly. pt has no complaints and denies headache. pt has been voiding well, denies pelvic pain and has passed flatus and tolerated regular diet. pt wants to have a BM. Dressing to abd removed and incision C/D/I. Pt to remain until tomorrow completing the 24hr course of antibiotics. All questions encouraged and answered.
[2022-02-24] MEDS: FERROUS SULFATE 325 MG TAB PO SCH (10:19)
[2022-02-24] MEDS: VANCOMYCIN/NS 1 GM/250 ML 1 GM/250 ML BAG IV SCH (15:31)
[2022-02-24 20:28] LABS: Basophils % (Auto) 0.2 % (0.0-1.8); Eosinophils # (Auto) 0.1 K/mm3 (0.0-0.4); Eosinophils % (Auto) 0.8 % (0.0-4.3); Hematocrit 26.7 % (30.3-42.9); Hemoglobin 8.8 gm/dl (10.1-14.3); Mean Corpuscular HGB Conc 33 % (30-34); Mean Corpuscular Volume 89 fl (79-97); Monocytes # (Auto) 0.6 K/mm3 (0.0-0.8); Monocytes % (Auto) 5.1 % (0.0-7.3); Platelet Count 182 K/mm3 (140-440); Red Blood Count 2.99 M/mm3 (3.65-5.03); Red Cell Distribution Width 14.7 % (13.2-15.2)
[2022-02-24 21:07] LABS: Alanine Aminotransferase 10 units/L (7-56); Albumin 2.9 g/dL (3.9-5); Blood Urea Nitrogen 8 mg/dL (7-17); Calcium 8.3 mg/dL (8.4-10.2); Hemolysis Index 0
[2022-02-24 21:17] LABS: BUN/Creatinine Ratio 11
[2022-02-25] MEDS: VANCOMYCIN/NS 1 GM/250 ML 1 GM/250 ML BAG IV SCH ×2 (00:59→11:07)
[2022-02-25] MEDS: SIMETHICONE 80 MG CHEW TAB PO PRN ×2 (02:35→08:41)
[2022-02-25] MEDS: METOCLOPRAMIDE 10 MG/2 ML INJ IV SCH ×2 (08:42→13:00)
[2022-02-25] MEDS: FERROUS SULFATE 325 MG TAB PO SCH (11:06)
--- NOTE | 2022-02-25 18:39 | Discharge Summary ---
Providers - Providers Date of Admission: 02/21/22 22:46 Date of discharge: 02/25/22 Attending physician: BLADIMIR BAUTISTA Internal medicine Primary care physician: BLADIMIR BAUTISTA Hospitalization Reason for admission: induction of labor (non reactive NST) Delivery: (primary) Procedure: section Episiotomy: none Laceration: none Incision: normal, dry, intact complications: other (Sepsis, PPH, DIC) Discharge diagnosis: IUP at term delivered [place] baby: female Condition at discharge: Good Disposition: 01 HOME / SELF CARE / HOMELESS - Discharge Diagnoses (1) Sepsis after obstetrical procedure Status: Acute (2) hemorrhage Status: Acute (3) DIC (disseminated intravascular coagulation) Status: Acute (4) S/P primary low transverse Status: Acute (5) Status post primary low transverse section Status: Acute Plan - Discharge Medications Prescriptions: Ferrous Sulfate [Feosol 325 MG tab] 325 mg PO TID #90 tablet labetaloL [Labetalol 200mg TAB] 200 mg PO BID #60 tablet Ibuprofen [Motrin 800 MG tab] 800 mg PO Q8HR PRN #30 tablet PRN Reason: Pain, Moderate (4-6) - Provider Discharge Summary Activity: no sex for 6 weeks, no heavy lifting 4 weeks, no strenuous exercise Diet: routine Instructions: routine Additional instructions: [] Smoking cessation referral if applicable(refer to patient education folder for contact #) [] Refer to [facility]'s [facility] Booklet Call your doctor immediately for: * Fever > 100.5 * Heavy vaginal bleeding ( >1 pad per hour) * Severe persistent headache * Shortness of breath * Reddened, hot, painful area to leg or breast * Drainage or odor from incision. * Keep incision clean and dry at all times and follow doctor's instructions regarding bathing/showering - Follow up plan Follow up: BLADIMIR BAUTISTA MD [Primary Care Provider] - 7 Days (blood pressure evaluation)
[2022-02-26 02:23] VITALS: BP 128/65
== END 2022-02-25 23:57 | disposition home or self-care (01) | DRG 786 ==
LOC: TRG 15:52 → APU 15:54 → LD 16:09 → TRG 02-21 22:46 → LD 02-21 22:46 → APU 02-21 23:31 → CC1 02-22 04:04 → OB 02-23 12:30
PROVIDERS: ADMIT Obstetrics & Gynecology; ATTEND Obstetrics & Gynecology
PROC: 10D00Z1 Extraction of Products of Conception, Low, Open Approach (ICD-10-PCS; principal; 2022-02-21)
PROC: 10H07YZ Insertion of Other Device into Products of Conception, Via Natural or Artificial Opening (ICD-10-PCS; 2022-02-21)
PROC: 30233N1 Transfusion of Nonautologous Red Blood Cells into Peripheral Vein, Percutaneous Approach (ICD-10-PCS; 2022-02-22)
PROC: 30233K1 Transfusion of Nonautologous Frozen Plasma into Peripheral Vein, Percutaneous Approach (ICD-10-PCS; 2022-02-22)
DX: O76 Abnormality in fetal heart rate and rhythm complicating labor and delivery (principal); O75.3 Other infection during labor; O85 Puerperal sepsis; O72.1 Other immediate postpartum hemorrhage; O86.12 Endometritis following delivery; Z20.822 Contact with and (suspected) exposure to COVID-19; O99.824 Streptococcus B carrier state complicating childbirth; O61.0 Failed medical induction of labor; Z3A.40 40 weeks gestation of pregnancy; Z37.0 Single live birth; O48.0 Post-term pregnancy; O77.0 Labor and delivery complicated by meconium in amniotic fluid
CPT/HCPCS: 36415; 36430; 76816; 80048; 80053; 81001; 82140; 85025; 85027; 85384; 85610; 85730; 86850; 86900; 86901; 86920; 87040; 87086; 88307; G0378; J3490; J7502; J0290; J0595; J1580; J2270; J2300; J2405; J2540; J2590; J2765; J3010; J3370; J7030; J7040; J7120; P9016; P9017; U0003